=== PATIENT | female | born 1975 | race Caucasian/White ===

== ENCOUNTER 2022-12-31 14:07 | Outpatient (AMB) | payer OTHER, SELFPAY ==
--- NOTE | 2022-12-31 14:30 | AM.OFFWIN_ITS ---
Intake Vital Signs 12/31/22 14:51 Height 5 ft 2 in Weight 165 lb BMI 30.2 BP 130/80 Blood Pressure Location Rt brachial Position Sitting Pulse 81 Pulse Source Pulse Oximeter Temp 98.0 F Temp Source Temporal Artery Scan Pulse Oximetry (%) 98 Intake Visit Reasons: FRONT DESK COORDINATOR, UTI? Intake Note: pt is here for c/o possible uti Patient Tobacco Use Status: Never used Tobacco Allergies naproxen Allergy (Mild, Verified 12/31/22 14:52) Hives Do you need a note to return to daycare/school/sports/work: Yes HPI HPI Comments History of Present Illness Details This is a 47-year-old female with a past medical history of anxiety and depression presenting for evaluation of dysuria and urinary frequency that she has had for the past 2 days. The patient reports having urinary pressure but denies any vaginal discharge, hematuria, fevers or chills. Patient has used cranberry juice, probiotics and pyridium with minimal relief of her discomfort. [facility] Social History Patient Tobacco Use Status: Never used Tobacco Review of Systems Const Denies chills, Denies fatigue, Denies fever(s) and Denies night sweats GI Reports no additional complaints Reports no additional complaints, Denies hematuria, Reports dysuria, Denies pelvic pain, Reports urinary urgency, Denies vaginal discharge and Denies vaginal pruritus Endo Denies fatigue Aller/Immun Reports no additional complaints Physical Exam Vital Signs: Last Vital Signs Temp 98.0 F 12/31/22 14:51 Pulse 81 12/31/22 14:51 BP 130/80 12/31/22 14:51 Pulse Ox 98 12/31/22 14:51 BMI result Body Mass Index 30.2 Const Other: Afebrile. General: cooperative, healthy appearing, comfortable, no acute distress and well developed Nutritional Appearance: average body habitus Orientation/consciousness: patient oriented x3 Limitations: no limitations GI Inspection: Yes normal to inspection Palpation (GI): Soft to palpation, nontender, no guarding and not rigid Auscultation: normal bowel sounds General: Yes no CVA tenderness Back/Spine/Pelvis Back: no CVA tenderness Neuro General: patient oriented x3 Psych Appearance: grossly normal Mental Status: mental status grossly normal Insight: Good insight present (Psych) Judgement: Good judgement present (Psych) Results AMB Urinalysis, Automated UA Leukoctes 500 Charles/uL Last Edit by Theodore Nugent CMA on 12/31/22 14:5 6 UA Nitrite Positive Last Edit by Theodore Nugent CMA on 12/31/22 14:56 UA Urobilinogen 8 mg/dL Last Edit by Theodore Nugent CMA on 12/31/22 14:5 6 UA Protein 100 mg/dL Last Edit by Theodore Nugent CMA on 12/31/22 14:56 UA pH 5.0 Last Edit by Theodore Nugent CMA on 12/31/22 14:56 UA Blood 0 Burt/uL Last Edit by Theodore Nugent CMA on 12/31/22 14:56 UA Specific [place] 1.030 Last Edit by Theodore Nugent CMA on 12/31/22 14:56 UA Ketone Positive Last Edit by Theodore Nugent CMA on 12/31/22 14:56 UA Bilirubin 4 mg/dL Last Edit by Theodore Nugent CMA on 12/31/22 14:56 UA Glucose 250 mg/dL Last Edit by Theodore Nugent CMA on 12/31/22 14:56 Results Reviewed Results Reviewed: Laboratory Last Values Urine pH (Auto) 5.0 12/31/22 14:53 Specific [place] (Auto) 1.030 12/31/22 14:53 Urine Protein (Auto) 100 mg/dL 12/31/22 14:53 Glucose (UA)(Auto) 250 mg/dL 12/31/22 14:53 Urine Ketones (Auto) Positive 12/31/22 14:53 Urine Blood (Auto) 0 Burt/uL 12/31/22 14:53 Urine Nitrite (Auto) Positive 12/31/22 14:53 Urine Bilirubin (Auto) 4 mg/dL 12/31/22 14:53 Urine Urobilinogen (Auto) 8 mg/dL 12/31/22 14:53 Leukocyte Esterase (Auto) 500 Charles/uL 12/31/22 14:53 Urinalysis reviewed with patient. Assessment & Plan Assessment & Plan (1) Dysuria: Comment: Urinalysis reviewed; patient will be discharged home with Keflex to take TID x 7 days. Code(s): R30.0 - Dysuria Orders: Orders AMB Urinalysis Automated Today Z13.9 - Encounter for screening, unspecified Medications: New cephalexin 500 mg PO Q8H 21 caps 0RF Coding Level of Care Code New Pt Level 3 (51795) Diagnoses Dysuria R30.0 Time Spent (min) 20
[2022-12-31 14:51] VITALS: BP 130/80; PULSE 81; TEMP 36.7; O2SAT 98; BMI 30.2
== END 2022-12-31 15:27 | disposition home or self-care (01) ==
PROVIDERS: Visit Provider Physician Assistant
DX: R30.0 Dysuria (principal)
CPT/HCPCS: 81003; 99203

== ENCOUNTER 2023-03-29 10:22 | Outpatient (AMB) | payer OTHER, MEDICAID, SELFPAY ==
--- NOTE | 2023-03-29 13:50 | AM.OFFWIN_ITS ---
Intake Vital Signs 3 03/29/23 13:51 Weight 171 lb BP 118/70 Blood Pressure Location Rt brachial Position Sitting Pulse 72 Pulse Source Pulse Oximeter Pulse Oximetry (%) 99 Oxygen Delivery Method Room Air Intake Visit Reasons: EP,refill lexapro/alcyclovir([id number]) Intake Note: Patient here because she needs a couple of refills on meds. Medications are as follows acyclovir 400mg and lexapro 20mg Patient Tobacco Use Status: Never used Tobacco Allergies naproxen Allergy (Mild, Verified 03/29/23 13:53) Hives Do you need a note to return to daycare/school/sports/work: No PFSH Social History Patient Tobacco Use Status: Never used Tobacco Physical Exam Vital Signs: Last Vital Signs Pulse 72 03/29/23 13:51 BP 118/70 03/29/23 13:51 Pulse Ox 99 03/29/23 13:51 Oxygen Delivery Method Room Air 03/29/23 13:51 Const General: cooperative, healthy appearing, no acute distress, alert, awake, Physically active, anxious and well groomed; No diaphoretic, ill appearing, intoxicated appearing, poor hygiene or tired appearing Nutritional Appearance: average body habitus Orientation/consciousness: oriented to person Limitations: no limitations HEENT Mouth: lip abnormal (healing lesion to the upper mid lip and lower mid lip) Mouth/tongue images: 2 1. 2. Resp Effort & Inspection: normal respiratory effort, able to speak in complete sentences, no audible wheezes, no cough, no grunting, not labored, no nasal flaring, no retractions and symmetric chest movement Auscultation: clear to auscultation bilaterally, no crackles, no rales, no rhonchi, no wheezes, lung sounds not diminished and No rub present Cardio Palpation: normal PMI Rate: regular rate Rhythm: regular rhythm Heart sounds: S1 normal heart sound present and S2 normal heart sound present Skin Other: Good color, warm and dry Neuro General: oriented to person Psych Appearance: grossly normal Mental Status: mental status grossly normal Speech and movement: Normal speech and movement present Affect: normal affect Attitude: cooperative Thought process: Normal thought process present Insight: Good insight present (Psych) Judgement: Good judgement present (Psych) Assessment & Plan Assessment & Plan (1) 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 They are starting to heal already, but she requests refill of acyclovir as this has shortened the course and decreased the severity of her flare ups in the past. She can follow up with her PCP as planned in about a month and a half, or can return to the clinic sooner if needed. (2) ALESSANDRA (generalized anxiety disorder): Code(s): F41.1 - Generalized anxiety disorder Plan: Patient reports history of generalized anxiety and states that she has been stable with her SSRI for years now however she ran out of the escitalopram yesterday and doesn't have PCP who can fill it for her until her new patient visit. She denies any current associated symptoms. No SI/HI reported. Medications: New 2 escitalopram oxalate 20 mg PO DAILY 30 tabs 1RF acyclovir 200 mg PO TID 21 caps 1RF Coding Level of Care Code Est Pt Level 4 (93673) Diagnoses Recurrent herpes labialis B00.1 ALESSANDRA (generalized anxiety disorder) F41.1
[2023-03-29 13:51] VITALS: BP 118/70; PULSE 72; O2SAT 99
== END 2023-03-29 15:09 | disposition home or self-care (01) ==
PROVIDERS: Visit Provider Physician Assistant Medical
DX: B00.1 Herpesviral vesicular dermatitis (principal); F41.1 Generalized anxiety disorder
CPT/HCPCS: 99051; 99214

== ENCOUNTER 2023-05-12 08:06 | Outpatient (AMB) | payer OTHER, MEDICAID, SELFPAY ==
[2023-05-12 08:18] VITALS: BP 112/70; PULSE 66; O2SAT 99; BMI 35.7
--- NOTE | 2023-05-12 08:18 | MHC.PC.OV ---
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, establish care Intake Note: Pt is here to est care Pt needs program director substance abuse referral Pt has appt for her Mammo [facility] Needs colon screen has not had one yet Is last menstrual period known: Yes Last menstrual period: 04/27/23 Allergies naproxen Allergy (Mild, Verified 05/12/23 08:32) Hives Medication List - Last Reconciled 05/12/23 by DANIEL Purvis acyclovir 200 mg PO TID escitalopram oxalate 20 mg PO DAILY Tobacco use date assessed: 05/12/23 Dental Screening Dental Screen Date: 05/12/23 Did you have a dental visit in the last 12 months?: No Did you have a dental problem in the last 6 months where you did not have access to dental care?: No Was dental information given to patient?: Patient has dentist HPI HPI Comments History of Present Illness Details Patient is a 48-year-old female in today to establish care. [facility] Surgical History (Updated 05/12/23 @ 08:37 by DANIEL Purvis) History of delivery Family History (Updated 05/12/23 @ 08:38 by DANIEL Purvis) Brother Substance use disorder Mother Mental health disorder Maternal Grandmother Mental health disorder Sister Arthritis, rheumatoid Social History (Updated 05/12/23 @ 08:39 by DANIEL Purvis) Housing: Apartment Patient Tobacco Use Status: Current everyday Tobacco user e-Cigarette/Vaping Use: Currently Using Second Hand Smoke Exposure: No service: No Current occupational status: employed Current occupation: [employer] Current occupational exposures/hazards: No Cognitive needs: No Hearing needs: No Vision needs: No Female Reproductive History Menstrual Date of last menstrual period: 04/27/23 Questionnaire PHQ-9 Over the last 2 weeks, how often have you been bothered by any of the following problems? 1. Little interest or pleasure in doing things: several days 2. Feeling down, depressed, or hopeless: several days 3. Trouble falling or staying asleep, or sleeping too much: several days 4. Feeling tired or having little energy: more than half the days 5. Poor appetite or overeating: several days 6. Feeling bad about yourself - or that you are a failure or have let yourself or your family down: several days 7. Trouble concentrating on things, such as reading the newspaper or watching television: several days 8. Moving or speaking so slowly that other people could have noticed. Or the opposite - being so fidgety or restless that you have been moving around a lot more than usual: not at all 9. Thoughts that you would be better off or of hurting yourself in some way: not at all Total score: 8 Depression Screening Interpretation: Negative Depression Screening Done: Yes 84781 - PHQ-9 Billing: Yes Source: Developed by Drs. Ricardo Li, Alethea John, Sung Stone and colleagues, with an educational kelvin from [employer]. Thrive Questionnaire Date Thrive assessed: 05/12/23 I am a: Patient What is your living situation today?: I have a steady place to live Within the past 12 months, did the food you bought not last and you didn't have the money to get more?: Sometimes True Within the past 12 months, did you worry whether your food would run out before you got money to buy more?: Sometimes True Do you have trouble paying for medicines?: No Do you have trouble getting transportation to medical appointments?: No Do you have trouble paying your heating and electricity bill?: No Do you have trouble taking care of your child, family member or friend?: No Do you have trouble with day-to-day activities such as bathing, preparing meals, shopping, managing finances, etc.?: No Are you currently unemployed and looking for a job?: No Are you interested in more education?: No THRIVE Score: 2 AUDIT C Alcohol Use Questionnaire (AUDIT-C) 1. How often do you have a drink containing alcohol?: 2-3 times a week 2. How many drinks containing alcohol do you have on a typical day when you are drinking?: 3 or 4 3. How often do you have six or more drinks on one occasion?: Never Total Score: 4 ALESSANDRA-7 AMB Questionnaire ALESSANDRA-7 Date ALESSANDRA - 7 assessed: 05/12/23 Feeling nervous, anxious, or on edge: 1 = Several days Not being able to stop or control worryin = Several days Worrying too much about different things: 1 = Several days Trouble relaxin = Several days Being so restless that it is hard to sit still: 1 = Several days Becoming easily annoyed or irritable: 1 = Several days Feeling afraid as if something awful might happen: 1 = Several days Total ALESSANDRA-7 score (0-4 normal; 5-9 mild; 10-14 moderate; 15-21 severe): 7 Source: Developed by Drs. Ricardo Li, Alethea John, Sung Stone and colleagues, with an educational kelvin from [employer]. ALESSANDRA-7 Assessment Billing ALESSANDRA-7 Assessment Tool: ALESSANDRA-7 Assessment 74414 Review of Systems Const Details: Constitutional : No Weight loss, No Fever, No Chills, No Fatigue, No Malaise ENT/Mouth : No sore throat, No Rhinorrhea. Admits frequent cold sores. Eyes: No Eye Pain, No Swelling, No Redness Cardiovascular : No Chest Pain, No SOB, No Dyspnea on Exertion, No Orthopnea, No Edema, No Palpitations Respiratory : No Cough, No Sputum, No Wheezing Gastrointestinal : No Nausea, No Vomiting, No Diarrhea, No Constipation, No abdominal Pain, No Hematochezia, No Melena Neuro : No Weakness, No Numbness, No Dizziness, No Headache Psych : No Anxiety/Panic, No Depression All other systems reviewed and are negative Physical exam (Primary Care) Vital Signs: Last Vital Signs Pulse 66 05/12/23 08:18 BP 112/70 05/12/23 08:18 Pulse Ox 99 05/12/23 08:18 Oxygen Delivery Method Room Air 05/12/23 08:18 BMI result Body Mass Index 35.7 Tobacco/Smoking Status: Tobacco use Status Tobacco use date assessed 05/12/23 05/12/23 08:25 Patient Tobacco Use Status Former Tobacco user 05/12/23 08:25 e-Cigarette/Vaping Use Currently Using 05/12/23 08:25 PHQ-9: PHQ-9 Score PHQ-9: Total score 8 05/12/23 08:29 Depression Screening Interpretation: Negative Thrive Assessment: Date of Thrive Assessment Date Thrive assessed 05/12/23 05/12/23 08:29 Const Other: Appearance: Alert.? Oriented X3.? No acute distress.? CVS: Normal heart rate and rhythm.? Pulses normal.? Respiratory: No respiratory distress.? Breath sounds normal.? Skin: Small erythema fluid filled blister. No erythema or sign of infeection. Neuro: Oriented X 3.? No motor deficit.? No sensory deficit. CN 2-12 intact Assessment and Plan Assessment & Plan (1) Anxiety: Comment: Patient states her anxiety has been in control since she started Lexapro the previous provider. Will refill at today's appointment. Patient denies SI/HI. Code(s): F41.9 - Anxiety disorder, unspecified (2) History of cold sores: Comment: Patient has history of recurrent cold sores. Will give valacyclovir. Patient has been educated the side effects of this medication. Code(s): Z86.19 - Personal history of other infectious and parasitic diseases Plan: Take your medications as prescribed. If you were prescribed antibiotics today, it is important that you take your medication to their entirety, do not skip any doses, do not finish them early. Follow-up with your primary care provider this week. Return to the emergency department with new or worsening symptoms. Such as fevers, chills, chest pain, shortness of breath, nausea, vomiting, dizziness, headache, vision changes, lethargy In case of emergency call 911 Plan Will refer for colonoscopy common OBGYN. Patient will follow-up physical in 3 months after fasting lab panel. Orders: Orders Comprehensive Met. Panel Today Z91.89 - Other specified personal risk factors, not elsewhere classified Vitamin D 25-OH (D2 and D3) Today Z13.21 - Encounter for screening for nutritional disorder UA CC w/rflx Micro + Cult Today Z13.89 - Encounter for screening for other disorder TSH reflex Free T4 Today Z13.29 - Encounter for screening for other suspected endocrine disorder Complete Blood Count Auto Diff Today Z13.0 - Encounter for screening for diseases of the blood and blood-forming organs and certain disorders involving the immune mechanism Lipid Panel Today Z13.220 - Encounter for screening for lipoid disorders 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
== END 2023-05-12 09:10 | disposition home or self-care (01) ==
PROVIDERS: Visit Provider Nurse Practitioner Primary Care
DX: F41.9 Anxiety disorder, unspecified (principal); Z86.19 Personal history of other infectious and parasitic diseases
CPT/HCPCS: 99213

== ENCOUNTER 2023-05-30 17:18 | Emergency (ER) | payer OTHER, MEDICAID, SELFPAY ==
--- NOTE | 2023-05-30 17:32 | ED.GENADULT ---
HPI - General Adult General Chief complaint: Abdominal Pain Stated complaint: Diarrhea Related Data Previous Rx's Medication Instructions Recorded acyclovir 200 mg capsule 200 mg PO TID #21 caps 05/12/23 escitalopram oxalate 20 mg tablet 20 mg PO DAILY #30 tabs 05/12/23 Allergies Allergy/AdvReac Type Severity Reaction Status Date / Time naproxen Allergy Mild Hives Verified 06/02/23 13:54 PMFSH Past Medical History Surgical History History of delivery Family History Family History Brother Substance use disorder Mother Mental health disorder Maternal Grandmother Mental health disorder Sister Arthritis, rheumatoid Social History Social History Housing: Apartment Patient Tobacco Use Status: Former Tobacco user e-Cigarette/Vaping Use: Currently Using Second Hand Smoke Exposure: No service: No Current occupational status: employed Current occupation: [employer] Current occupational exposures/hazards: No Cognitive needs: No Hearing needs: No Vision needs: No Physical Exam ED Vital Signs: BMI result Body Mass Index 34.9 Course Course Course Narrative: This is an RME: Additional HPI, ROS, PE not included below will be deferred to primary provider. Patient is a 48-year-old female who presents to emergency department for evaluation of diarrhea. She reports I'm worried I have norovirus . Daughter was ill yesterday with nausea and vomiting. She awoke today with copious amounts of watery diarrhea, with small amounts of bright red blood present, took imodium with some relief. Has nausea but no vomiting. Reports that she believes she is significantly dehydrated and needs IV fluids. Diffuse ABD pain. PCP told her to come to ED Plan: labs, viral testing, U/A Medical Decision Making Lab Data 05/30/23 17:56 05/30/23 17:56 Labs: Lab Results 05/30/23 Range/Units 17:56 WBC 11.6 H (4.8-10.8) X10*3/uL RBC 4.62 (4.20-5.50) X10*6/uL Hgb 15.6 (12.0-16.0) g/dl Hct 46.3 (37.0-47.0) % MCV 100.2 H (80.0-98.0) fL MCH 33.8 H (27.0-33.0) pg MCHC 33.7 (31.0-35.0) g/dl RDW 13.3 (11.0-16.0) % Plt Count 218 (160-400) X10*3/uL MPV 11.0 (9.4-12.3) fL Immature Gran % (Auto) 0.3 (0.0-0.4) % Neut % (Auto) 91.7 H (45-73) % Lymph % (Auto) 4.6 L (20-40) % Tyler % (Auto) 2.8 (2-11) % Eos % (Auto) 0.3 (0-4) % Baso % (Auto) 0.3 (0-2) % Lymph # (Auto) 0.5 L (1.2-4.9) X10*3/uL Tyler # (Auto) 0.3 (0.1-1.2) X10*3/uL Eos # (Auto) 0.0 (0.0-0.4) X10*3/uL Baso # (Auto) 0.0 (0.0-0.2) X10*3/uL Abs Immat Gran (auto) 0.04 H (0.00-0.03) X10*3/uL Absolute Neuts (auto) 10.6 H (2.0-8.3) x10*3/uL Absolute Nucleated RBC 0.000 (0.0-0.012) X10*3/uL Nucleated RBC % (auto) 0.0 (0.0-0.2) /100WBC Smear Tech's Comments VERIFIED Sodium 139 (135-145) mmol/L Potassium 4.8 (3.3-5.1) mmol/L Chloride 108 (96-108) mmol/L Carbon Dioxide 22 (22-29) mmol/L Anion Gap 14 (12-20) BUN 16 (9-16) mg/dL Creatinine 0.90 (0.5-1.4) mg/dL Estim Creat Clear Calc 78.0 Estimated GFR > 60 Random Glucose 114 (60-115) mg/dL Calcium 10.0 (8.4-10.2) mg/dL Total Bilirubin 0.7 (0.0-1.0) mg/dL AST 18 (5-31) U/L ALT 23 (0-31) U/L Alkaline Phosphatase 53 (39-117) U/L Total Protein 7.7 (6.5-8.0) g/dL Albumin 4.6 (3.5-5.0) g/dL Lipase 31 (8-78) U/L Urine Color Dark Yellow Urine Appearance Cloudy Urine pH 5.5 (5.0-9.0) Ur Specific [place] >= 1.030 H (1.005-1.025) Urine Protein 100 (2+) H (Neg-Trace) mg/dL Urine Glucose (UA) Negative (Negative) mg/dL Urine Ketones Trace (Negative) mg/dL Urine Blood Negative (Negative) Urine Nitrite Negative (Negative) Ur Leukocyte Esterase Trace H (Negative) Urine RBC 0-2 (0-2) /HPF Urine WBC 0-5 (0-5) /HPF Ur Squamous Epith Cells 11-20 (0-2) /HPF Urine Bacteria Trace (None Seen) Hyaline Casts >20 (0-2) /LPF Influenza Type A (PCR) NEGATIVE (Negative) Influenza Type B (PCR) NEGATIVE (Negative) RSV RNA Qual (PCR) NEGATIVE (Negative) SARS-CoV-2 RNA (RT-PCR) NEGATIVE (Negative) Discharge Plan Discharge Clinical Impression: Diarrhea Patient Disposition: Left W/O Completing Treatment Prescriptions: No Action escitalopram oxalate 20 mg tablet 20 mg PO DAILY Qty: 30 1RF acyclovir 200 mg capsule 200 mg PO TID Qty: 21 1RF Discharge Date/Time: 05/30/23 19:25
[2023-05-30 17:33] VITALS: BP 114/74; PULSE 86; RESP 18; TEMP 37; O2SAT 96; BMI 34.9
[2023-05-30 18:06] LABS: Basophils Percent Auto 0.3 % (0-2); Eosinophils Percent Auto 0.3 % (0-4); Hematocrit 46.3 % (37.0-47.0); Hemoglobin 15.6 g/dl (12.0-16.0); Imm Gran Abs Auto 0.04 X10*3/uL (0.00-0.03); Imm Gran Pct Auto 0.3 % (0.0-0.4); Lymphocytes Absolute Auto 0.5 X10*3/uL (1.2-4.9); Lymphocytes Percent Auto 4.6 % (20-40); MANUAL DIFF FLAG SCAN; Mean Corpuscular HGB Conc 33.7 g/dl (31.0-35.0); Mean Corpuscular Hemoglobin 33.8 pg (27.0-33.0); Mean Corpuscular Volume 100.2 fL (80.0-98.0); Monocytes Absolute Auto 0.3 X10*3/uL (0.1-1.2); Monocytes Percent Auto 2.8 % (2-11); Neutrophils Absolute Auto 10.6 x10*3/uL (2.0-8.3); Neutrophils Percent Auto 91.7 % (45-73); Platelet Count 218 X10*3/uL (160-400); Red Blood Count 4.62 X10*6/uL (4.20-5.50); Red Cell Distribution Width 13.3 % (11.0-16.0); SCAN SMEAR FLAG 1; White Blood Count 11.6 X10*3/uL (4.8-10.8)
[2023-05-30 18:19] LABS: Appearance Urine Cloudy; Color Urine Dark Yellow; Glucose Urine UA Negative (Negative); Leukocyte Esterase Urine Trace (Negative); Nitrite Urine Negative (Negative); PH 5.5 (5.0-9.0); Specific Gravity - Urine >= 1.030 (1.005-1.025); UMIC TRIGGER UACC YES; Urine Blood Negative (Negative); Urine Ketones Trace mg/dL (Negative); Urine Protein 100 (2+) mg/dL (Neg-Trace)
[2023-05-30 18:20] LABS: Alanine Aminotransferase 23 U/L (0-31); Albumin Level 4.6 g/dL (3.5-5.0); Alkaline Phosphatase 53 U/L (39-117); Anion Gap 14 (12-20); Aspartate Amino Transferase 18 U/L (5-31); Bilirubin Total 0.7 mg/dL (0.0-1.0); Blood Urea Nitrogen 16 mg/dL (9-16); Carbon Dioxide 22 mmol/L (22-29); Chloride 108 mmol/L (96-108); Estimated Glomerular Filt Rate > 60; Glucose Random 114 mg/dL (60-115); Lipase 31 U/L (8-78); Potassium 4.8 mmol/L (3.3-5.1); Sodium 139 mmol/L (135-145); Total Protein 7.7 g/dL (6.5-8.0)
[2023-05-30 18:42] LABS: Influenza A PCR NEGATIVE (Negative); Influenza B PCR NEGATIVE (Negative); Resp Syncy Virus RNA Qual PCR NEGATIVE (Negative); SARS COV2 PCR INHOUSE NEGATIVE (Negative)
[2023-05-30 18:43] LABS: SLIDE REVIEW VERIFIED
[2023-05-30 19:35] LABS: Bacteria Urine Trace (None Seen); Hyaline Casts Urine >20 /LPF (0-2); WBC Urine 0-5 /HPF (0-5)
[2023-05-30 19:37] LABS: RBC Urine 0-2 /HPF (0-2)
== END 2023-05-30 19:25 | disposition left against medical advice (07) ==
PROVIDERS: Nurse Practitioner Family; Emergency Provider Emergency Medicine; PCP Nurse Practitioner Primary Care
DX: R19.7 Diarrhea, unspecified (principal); Z11.52 Encounter for screening for COVID-19; Z20.828 Contact with and (suspected) exposure to other viral communicable diseases
CPT/HCPCS: 0241U; 36415; 80053; 81001; 83690; 85025; 99282; 99283

== ENCOUNTER 2023-06-02 13:39 | Outpatient (AMB) | payer OTHER, MEDICAID, SELFPAY ==
[2023-06-02 13:37] VITALS: BP 128/72; PULSE 73; O2SAT 97; BMI 35.0
--- NOTE | 2023-06-02 13:37 | MHC.PC.OV ---
Vital Signs 06/02/23 13:37 Height 5 ft 2 in Weight 191 lb 8 oz BMI 35.0 BP 128/72 Blood Pressure Location Rt brachial Position Sitting Pulse 73 Pulse Source Pulse Oximeter Pulse Oximetry (%) 97 Oxygen Delivery Method Room Air Intake Visit Reasons[place] [facility] [place] [place], [place] Allergies naproxen Allergy (Mild, Verified 06/02/23 13:54) Hives Medication List - Last Reconciled 06/02/23 by DANIEL Purvis acyclovir 200 mg PO TID escitalopram oxalate 20 mg PO DAILY Tobacco use date assessed: 06/02/23 Dental Screening Dental Screen Date: 06/02/23 Did you have a dental visit in the last 12 months?: No Did you have a dental problem in the last 6 months where you did not have access to dental care?: No Was dental information given to patient?: Patient has dentist HPI HPI Comments History of Present Illness Details Patient is a 48-year-old female here as a hospital discharge follow-up. Patient was seen in the emergency room for symptoms of nausea, vomiting, diarrhea, fever. She states that other individuals at her house were sick with similar symptoms. She had labs and upper respiratory swabs, which demonstrated mild leukocytosis. Will go over lab results with patient at today's visit. She has a past medical history significant for anxiety. She is here for today's visit to get clearance to return to work. Patient states that she has had no symptoms since she left the emergency room. Denies nausea, vomiting, fever diarrhea, chest pain, shortness a breath, numbness. She states that she is able to eat and drink and hold food down. She does report feeling some general malaise. [facility] Surgical History History of delivery Family History Brother Substance use disorder Mother Mental health disorder Maternal Grandmother Mental health disorder Sister Arthritis, rheumatoid Social History Housing: Apartment Patient Tobacco Use Status: Former Tobacco user e-Cigarette/Vaping Use: Currently Using Second Hand Smoke Exposure: No service: No Current occupational status: employed Current occupation: [employer] [place] Current occupational exposures/hazards: No Cognitive needs: No Hearing needs: No Vision needs: No Questionnaire Thrive Questionnaire Date Thrive assessed: 05/12/23 AUDIT C Alcohol Use Questionnaire (AUDIT-C) 1. How often do you have a drink containing alcohol?: 2-3 times a week 2. How many drinks containing alcohol do you have on a typical day when you are drinking?: 3 or 4 3. How often do you have six or more drinks on one occasion?: Never Total Score: 4 Score Reviewed/Action Taken: Yes ALESSANDRA-7 AMB Questionnaire ALESSANDRA-7 Date ALESSANDRA - 7 assessed: 05/12/23 Source: Developed by Drs. Ricardo Li, Alethea John, Sung Stone and colleagues, with an educational kelvin from [employer]. Review of Systems Const All systems reviewed & are unremarkable except as noted in HPI and below Denies chills, Reports fatigue, Denies fever(s), Denies headache(s), Reports malaise and Reports poor appetite (able to keep food and drink down.) ENT Denies dizziness and Denies headache(s) Neuro Denies dizziness and Denies headache(s) Endo Reports fatigue Physical exam (Primary Care) Vital Signs: Last Vital Signs Pulse 73 06/02/23 13:37 BP 128/72 06/02/23 13:37 Pulse Ox 97 06/02/23 13:37 Oxygen Delivery Method Room Air 06/02/23 13:37 Care Plan Goal for BP management: Vital signs reviewed stable. BMI result Body Mass Index 35.0 Tobacco/Smoking Status: Tobacco use Status Tobacco use date assessed 06/02/23 06/02/23 13:38 Patient Tobacco Use Status Current everyday Tobacco 06/02/23 13:38 e-Cigarette/Vaping Use Currently Using 06/02/23 13:38 Thrive Assessment: Date of Thrive Assessment Date Thrive assessed 05/12/23 06/02/23 13:38 Const Other: Appearance: Alert.? Oriented X3.? No acute distress.? Head: Normocephalic, atraumatic. ENT: TM not visible, impacted cerumen. Neck: Normal inspection.? Neck supple.? CVS: Normal heart rate and rhythm.? Pulses normal.? Respiratory: No respiratory distress.? Breath sounds normal.? Neuro: Oriented X 3.? No motor deficit.? No sensory deficit. CN 2-12 intact Post ear lavage TM intact and pearly pearson. Office Procedures Cerumen Removal From which ear canal was the cerumen removed: bilateral Removal: irrigation 54445-[id number] Wax Removal by Spoon/Curette Results Reviewed Results Reviewed: WBC 11.6 H 4.8-10.8 X10*3/uL RBC 4.62 4.20-5.50 X10*6/uL HGB 15.6 12.0-16.0 g/dl HCT 46.3 37.0-47.0 % MCV 100.2 H 80.0-98.0 fL MCH 33.8 H 27.0-33.0 pg MCHC 33.7 31.0-35.0 g/dl RDW 13.3 11.0-16.0 % PLT 218 160-400 X10*3/uL MPV 11.0 9.4-12.3 fL Neut Pct Auto 91.7 H 45-73 % ImGran Pct Auto 0.3 0.0-0.4 % Lymp Pct Auto 4.6 L 20-40 % Allen Pct Auto 2.8 2-11 % Eos Pct Auto 0.3 0-4 % Baso Pct Auto 0.3 0-2 % NRBC Pct Auto 0.0 0.0-0.2 /100WBC ANC Neut Abs # 10.6 H 2.0-8.3 x10*3/uL ImGran Abs Auto 0.04 H 0.00-0.03 X10*3/uL Lymph Abs Auto 0.5 L 1.2-4.9 X10*3/uL Allen Abs Auto 0.3 0.1-1.2 X10*3/uL Eos Abs Auto 0.0 0.0-0.4 X10*3/uL Baso Abs Auto 0.0 0.0-0.2 X10*3/uL NRBC Abs Auto 0.000 0.0-0.012 X10*3/uL Sodium 139 135-145 mmol/L Potassium 4.8 3.3-5.1 mmol/L CL 108 96-108 mmol/L CO2 22 22-29 mmol/L Gap 14 12-20 BUN 16 9-16 mg/dL Creat 0.90 0.5-1.4 mg/dL Estimated CrCl 78.0 Provided height and weight: 157.48 cm, 86.6 kg. eGFR (calculated from the MDRD study equation) and eCrCl (calculated from the Cockcroft-Gault equation) are based on different parameters and may not yield comparable results. If eCrCl result is absurd, please check patient's height/weight. EGFR > 60 NOTE: For -Qat[place] individuals, multiply the result by 1.210. Chronic Kidney Disease: Estimated GFR < 60 mL/min/1.73m2 Severe Kidney Disease: Estimated GFR < 15 mL/min/1.73m2 Glucose, Random 114 60-115 mg/dL CA 10.0 8.4-10.2 mg/dL Total Bili 0.7 0.0-1.0 mg/dL AST (GOT) 18 5-31 U/L ALT (GPT) 23 0-31 U/L Protein, Total 7.7 6.5-8.0 g/dL Alb 4.6 3.5-5.0 g/dL Alk Phos 53 39-117 U/L Lipase 31 8-78 U/L Assessment and Plan Assessment & Plan (1) Gastroenteritis: Comment: Reviewed labs with patient. Patient able to hold down food and drink. Patient given note for work excuse. Code(s): K52.9 - Noninfective gastroenteritis and colitis, unspecified Plan: Take your medications as prescribed. If you were prescribed antibiotics today, it is important that you take your medication to their entirety, do not skip any doses, do not finish them early. Follow-up with your primary care provider this week. Return to the emergency department with new or worsening symptoms. Such as fevers, chills, chest pain, shortness of breath, nausea, vomiting, dizziness, headache, vision changes, lethargy In case of emergency call 911 (2) Impacted cerumen, bilateral: Comment: Patient had in office ear lavage with good effect. Code(s): H61.23 - Impacted cerumen, bilateral Plan Patient has follow-up appointment 3 months. Orders: Orders AMB Cerumen Removal Today H61.23 - Impacted cerumen, bilateral Coding Level of Care Code Est Pt Level 4 (55803) Diagnoses Gastroenteritis K52.9 Impacted cerumen, bilateral H61.23 CPT Codes Office Procedure - CPT: 79131-Yuu Wax Removal by Spoon/Curette ([id number]) Time Spent (min) 33
== END 2023-06-02 16:37 | disposition home or self-care (01) ==
PROVIDERS: PCP Nurse Practitioner Primary Care; Visit Provider Nurse Practitioner Primary Care
DX: K52.9 Noninfective gastroenteritis and colitis, unspecified (principal); H61.23 Impacted cerumen, bilateral
CPT/HCPCS: 69209; 99214

== ENCOUNTER 2023-12-23 10:51 | Outpatient (AMB) | payer OTHER, MEDICAID, SELFPAY ==
--- NOTE | 2023-12-23 11:30 | MHC.OFFWIV ---
Intake Vital Signs 12/23/23 11:33 Weight 200 lb BP 114/70 Blood Pressure Location Rt brachial Position Sitting Pulse 78 Pulse Source Pulse Oximeter Temp 98.6 F Temp Source Oral Pulse Oximetry (%) 98 Oxygen Delivery Method Room Air Intake Visit Reasons: EP ? ear infection, pain on right side ear Intake Note: Patient here for right ear pain w/discharge, headache which has been present for about 2 weeks. Patient Tobacco Use Status: Former Tobacco user Allergies naproxen Allergy (Mild, Verified 12/23/23 11:32) Hives Do you need a note to return to daycare/school/sports/work: Yes HPI HPI Comments History of Present Illness Details Patient is a 48-year-old female complaining of 1 week of right ear pain. She tells me she recently had COVID and she has full-body inflammation because that happens to her each time she gets sick. She tells me that she feels like her right ear is a little bit swollen and painful on the outside. She denies any change in her hearing or fevers. She does tell me there is some liquid coming out of the right ear. [facility] Surgical History History of delivery Family History Brother Substance use disorder Mother Mental health disorder Maternal Grandmother Mental health disorder Sister Arthritis, rheumatoid Social History Housing: Apartment Patient Tobacco Use Status: Former Tobacco user e-Cigarette/Vaping Use: Currently Using Second Hand Smoke Exposure: No service: No Current occupational status: employed Current occupation: [employer] Current occupational exposures/hazards: No Cognitive needs: No Hearing needs: No Vision needs: No Review of Systems Const All systems reviewed & are unremarkable except as noted in HPI and below Physical Exam Vital Signs: Last Vital Signs Temp 98.6 F 12/23/23 11:33 Pulse 78 12/23/23 11:33 BP 114/70 12/23/23 11:33 Pulse Ox 98 12/23/23 11:33 Oxygen Delivery Method Room Air 12/23/23 11:33 Const General: cooperative, healthy appearing, comfortable and no acute distress Orientation/consciousness: patient oriented x3 HEENT Head: Yes normal to inspection, Yes No palpable skull fracture present and Yes normocephalic Ears: hearing grossly normal bilaterally, external ears normal, TM's normal bilaterally, EAC's normal, mastoids normal (no TTP) bilaterally, Abnormal EAC present (right side) erythema, edema and EAC tenderness and no external ear abnormalities General nose exam: Normal external nose present Face and sinus: Yes normal facial exam Mouth: Normal oral and palatal mucosa present Teeth and gingiva: dentition normal Throat: Yes posterior oropharynx normal Eyes General: appearance normal, both eyes and all related structures Neck Neck: Yes normal visual inspection, Yes full ROM, Yes no lymphadenopathy, Yes no meningeal signs, Yes trachea midline and Yes supple Resp Effort & Inspection: normal respiratory effort and able to speak in complete sentences Skin General skin exam: no rashes or lesions noted Neuro General: patient oriented x3 and no meningeal signs Assessment & Plan Assessment & Plan (1) Otitis externa of right ear: Code(s): H60.91 - Unspecified otitis externa, right ear Qualifiers: Otitis externa type: diffuse Chronicity: acute Qualified Code(s): H60.311 - Diffuse otitis externa, right ear Plan: Sent polymyxin B drops to the pharmacy. We will also give patient a work note. Plan See above Medications: New [id number]-[id number]-PY 3.5-10,000-1 mg/mL-unit/mL-% 4 drps otic (ear) right QID 7 days 10 mL 0RF Coding Level of Care Code Est Pt Level 3 (84720) Diagnoses Acute diffuse otitis externa of right ear H60.311 Otitis externa type: diffuse Chronicity: acute
[2023-12-23 11:33] VITALS: BP 114/70; PULSE 78; TEMP 37; O2SAT 98
== END 2023-12-23 11:52 | disposition home or self-care (01) ==
PROVIDERS: PCP Nurse Practitioner Primary Care; Visit Provider Physician Assistant
DX: H60.311 Diffuse otitis externa, right ear (principal)

== ENCOUNTER → 2023-12-23 10:51 | Outpatient (BNVA) | payer OTHER, MEDICAID, SELFPAY | PROVIDERS: PCP Nurse Practitioner Primary Care ==

== ENCOUNTER 2024-02-05 09:15 | Outpatient (AMB) | payer OTHER, SELFPAY ==
[2024-02-05 09:22] VITALS: BP 124/72; PULSE 66; O2SAT 99; BMI 36.6
--- NOTE | 2024-02-05 09:22 | A.OFFPC_ITS ---
Vital Signs 02/05/24 09:22 Height 5 ft 2 in Weight 200 lb BMI 36.6 BP 124/72 Blood Pressure Location Lt brachial Position Sitting Pulse 66 Pulse Source Pulse Oximeter Pulse Oximetry (%) 99 Oxygen Delivery Method Room Air Intake Visit Reasons: Follow up/Establish care from [facility] Intake Note: Pt is here today for a follow up visit to establish care from [facility]. Pt needs refill on her medication. Allergies naproxen Allergy (Mild, Verified 02/05/24 09:24) Hives Medication List - Last Reconciled 02/05/24 by Aurelia Brock MD acyclovir 200 mg PO TID escitalopram oxalate 20 mg PO DAILY Tobacco use date assessed: 02/05/24 Dental Screening Dental Screen Date: 06/02/23 HPI HPI Comments History of Present Illness Details Pt presents for new patient visit transfer from [facility]. Past medical history includes chronic anxiety controlled on escitalopram. Patient follows up with [facility] for chronic joint and body aches and has been treated with low dose of naltrexone which has been helpful. 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 Housing: Apartment Patient Tobacco Use Status: Former Tobacco user e-Cigarette/Vaping Use: Currently Using Second Hand Smoke Exposure: No service: No Current occupational status: employed Current occupation: [employer] Current occupational exposures/hazards: No Cognitive needs: No Hearing needs: No Vision needs: No Questionnaire PHQ-9 Over the last 2 weeks, how often have you been bothered by any of the following problems? 1. Little interest or pleasure in doing things: several days 2. Feeling down, depressed, or hopeless: several days 3. Trouble falling or staying asleep, or sleeping too much: several days 4. Feeling tired or having little energy: nearly every day 5. Poor appetite or overeating: several days 6. Feeling bad about yourself - or that you are a failure or have let yourself or your family down: several days 7. Trouble concentrating on things, such as reading the newspaper or watching television: not at all 8. Moving or speaking so slowly that other people could have noticed. Or the opposite - being so fidgety or restless that you have been moving around a lot more than usual: not at all 9. Thoughts that you would be better off or of hurting yourself in some way: not at all Total score: 8 Depression Screening Interpretation: Negative Depression Screening Done: Yes 24998 - PHQ-9 Billing: Yes Source: Developed by Drs. Ricardo Li, Alethea John, Sung Stone and colleagues, with an educational kelvin from [employer]. Thrive Questionnaire Date Thrive assessed: 02/05/24 I am a: Patient What is your living situation today?: I have a steady place to live Within the past 12 months, did the food you bought not last and you didn't have the money to get more?: Never true Within the past 12 months, did you worry whether your food would run out before you got money to buy more?: Sometimes True Do you have trouble paying for medicines?: No Do you have trouble getting transportation to medical appointments?: No Do you have trouble paying your heating and electricity bill?: No Do you have trouble taking care of your child, family member or friend?: No Do you have trouble with day-to-day activities such as bathing, preparing meals, shopping, managing finances, etc.?: No Are you currently unemployed and looking for a job?: No Are you interested in more education?: No Please select the resources that you would like help with: None Currently or been in a relationship where the following occur: No concerns reported THRIVE Score: 1 AUDIT C Alcohol Use Questionnaire (AUDIT-C) 1. How often do you have a drink containing alcohol?: Never Total Score: 0 ALESSANDRA-7 AMB Questionnaire ALESSANDRA-7 Date ALESSANDRA - 7 assessed: 02/05/24 Feeling nervous, anxious, or on edge: 2 = More than half the days Not being able to stop or control worryin = Several days Worrying too much about different things: 1 = Several days Trouble relaxin = Several days Being so restless that it is hard to sit still: 0 = Not at all Becoming easily annoyed or irritable: 1 = Several days Feeling afraid as if something awful might happen: 1 = Several days Total ALESSANDRA-7 score (0-4 normal; 5-9 mild; 10-14 moderate; 15-21 severe): 7 Source: Developed by Drs. Ricardo Li, Alethea John, Sung Stone and colleagues, with an educational kelvin from [employer]. ALESSANDRA-7 Assessment Billing ALESSANDRA-7 Assessment Tool: ALESSANDRA-7 Assessment 68137 Review of Systems Const All systems reviewed & are unremarkable except as noted in HPI and below Eyes Reports no additional complaints ENT Reports no additional complaints Card Reports no additional complaints Resp Reports no additional complaints GI Reports no additional complaints Reports no additional complaints Physical exam (Primary Care) Vital Signs: Last Vital Signs Pulse 66 02/05/24 09:22 BP 124/72 02/05/24 09:22 Pulse Ox 99 02/05/24 09:22 Oxygen Delivery Method Room Air 02/05/24 09:22 BMI result Body Mass Index 36.6 Tobacco/Smoking Status: Tobacco use Status Tobacco use date assessed 02/05/24 02/05/24 09:27 Patient Tobacco Use Status Former Tobacco user 02/05/24 10:02 e-Cigarette/Vaping Use Currently Using 02/05/24 10:02 PHQ-9: PHQ-9 Score PHQ-9: Total score 8 02/05/24 10:03 Depression Screening Interpretation: Negative Thrive Assessment: Date of Thrive Assessment Date Thrive assessed 02/05/24 02/05/24 09:27 Currently or been in a relationship where the following occur: No concerns reported Const General: no acute distress HENMT Head: Yes normal to inspection Ears: hearing grossly normal bilaterally Face and sinus: Yes normal facial exam Mouth: Normal oral and palatal mucosa present Eyes General: appearance normal, both eyes and all related structures Neck Neck: Yes no lymphadenopathy and Yes supple Resp Effort & Inspection: normal respiratory effort Auscultation: clear to auscultation bilaterally Cardio Rhythm: regular rhythm Heart sounds: S1 normal heart sound present and S2 normal heart sound present GI Inspection: Yes normal to inspection Palpation (GI): Soft to palpation Percussion: Yes normal to percussion Auscultation: normal bowel sounds Coding Level of Care Code Est Pt Level 3 (84673) Diagnoses Chronic pain G89.29 Anxiety F41.9 Additional Codes ALESSANDRA-7 Assessment Billing - ALESSANDRA-7 Assessment Tool: ALESSANDRA-7 Assessment 18043 ([id number]) PHQ-9 - 66645 - PHQ-9 Billing: Yes ([id number]) Assessment & Plan Assessment & Plan (1) Chronic pain: Comment: f/u with [facility] on low dose Naltrexone , negative arthritis labs 01/22/2024 Code(s): G89.29 - Other chronic pain Category: Medical Plan: Follow-up with [facility] (2) Anxiety: Code(s): F41.9 - Anxiety disorder, unspecified Category: Medical Plan: Continue escitalopram Orders: Orders Follicle Stimulating Hormone Today Z00.00 - Encounter for general adult medical examination without abnormal findings CT NG by PCR Today Z00.00 - Encounter for general adult medical examination without abnormal findings Lipid Panel Today Z00.00 - Encounter for general adult medical examination without abnormal findings Syphilis Screen Today Z00.00 - Encounter for general adult medical examination without abnormal findings HIV Ab/Ag Today Z00.00 - Encounter for general adult medical examination without abnormal findings Hepatitis B,C Profile Today Z00.00 - Encounter for general adult medical examination without abnormal findings Referrals Gastroenterology Referral Z00.00 - Encounter for general adult medical examination without abnormal findings Cologuard Test Z12.11 - Encounter for screening for malignant neoplasm of colon, Z12.12 - Encounter for screening for malignant neoplasm of rectum Medications: New acyclovir 5% 1 appl topical 6XD 15 grams 2RF 7 days Refilled escitalopram oxalate 20 mg PO DAILY 90 tabs 3RF acyclovir 200 mg PO TID 21 caps 5RF
== END 2024-02-05 10:39 | disposition home or self-care (01) ==
PROVIDERS: Visit Provider Internal Medicine
DX: G89.29 Other chronic pain (principal); F41.9 Anxiety disorder, unspecified

== ENCOUNTER → 2024-02-05 09:15 | Outpatient (BNVA) | payer OTHER, SELFPAY | PROVIDERS: Visit Provider Internal Medicine | DX: G89.29 Other chronic pain (principal); F41.9 Anxiety disorder, unspecified | CPT/HCPCS: 96127 ==